=== PATIENT | female | born 1955 | race Caucasian/White ===

== ENCOUNTER 2018-03-12 21:03 | Emergency (ER) | payer MEDICAID, OTHER ==
[2018-03-12] MEDS: predniSONE 20 MG TAB PO (23:11)
[2018-03-12] MEDS: morphine 2 MG INJ IM (23:14)
== END 2018-03-13 00:34 | disposition home or self-care (01) ==
LOC: FTE 21:03
DX: M54.31 Sciatica, right side (principal)
CPT/HCPCS: 96372; 99284-25

== ENCOUNTER 2018-04-05 01:06 | Emergency (ER) | payer MEDICAID ==
[2018-04-05] MEDS: ONDANSETRON (ODT) 4 MG TAB ODT (02:38)
[2018-04-05] MEDS: morphine 4 MG/ML VIAL IM (02:39)
== END 2018-04-05 03:55 | disposition home or self-care (01) ==
LOC: FTE 01:06
DX: M54.41 Lumbago with sciatica, right side (principal)
CPT/HCPCS: 72100; 96372; 99284-25

== ENCOUNTER 2018-04-06 18:23 | Emergency (ER) | payer MEDICAID ==
[2018-04-06] MEDS: ONDANSETRON (ODT) 4 MG TAB ODT (21:06)
[2018-04-06] MEDS: DEXAMETHASONE 10 MG/ML 1 ML INJ IM (21:07)
[2018-04-06] MEDS: morphine 4 MG/ML VIAL IM (21:07)
== END 2018-04-06 22:08 | disposition home or self-care (01) ==
LOC: FTE 18:23
DX: M54.41 Lumbago with sciatica, right side (principal)
CPT/HCPCS: 96372; 99284-25; J1100